=== PATIENT | male | born 1955 | race Caucasian/White ===

== ENCOUNTER 2016-09-16 20:00 | Observation (INO) | payer BC ==
--- NOTE | ~2016-09-16 | HP ---
History And Physical [place] [id number] [facility] [place]. [address] NAME: JARED ROSADO : 57 STATUS : ADM [place] PAT#: [id number] AGE: 60 ADM/REG DATE : 09/16/16 MR#: [id number] REPORT SERV DATE: 09/17/16 DICTATED BY: MIGUELINA HURTADO DATE: 09/17/16 REPORT STATUS : Draft TRANSCRIBED BY: GABINO DATE: 09/17/16 DATE OF ADMISSION: 09/16/2016 CHIEF COMPLAINT: JAQUEZ and chest pain with typical and atypical features. HISTORY OF PRESENT ILLNESS: A very pleasant 60-year-old white gentleman with no known history of CAD, states that on 09/16/2016, while at [employer], he became nauseated. He had no other symptoms. He and his went for breakfast or lunch following [employer]. He consumed hamburger steak, fries, and a salad. Later that day in his workshop, he developed a "sharp pain" in the center of his chest with associated shortness of breath, nausea, dizziness, and belching. He denies any diaphoresis. He states that his chest pain was an 8/10 at its most intense. At the time of interview in the [facility], he is pain free. The episode lasted approximately 90 minutes in duration. He checked his blood pressure that day, and it was 108/63, which was concerning for him, a little lower than normal. He also reports an episode of dyspnea on exertion with his most recent walk on Saturday. The patient denies any personal history of myocardial infarction, stroke, DVT, or pulmonary embolus. Most recent stress test approximately [address] Rodriguez's office. No recent fever, chills, rare palpitations. Consumes a glass of tea on some days. No syncopal episodes. Denies PND or orthopnea. PAST MEDICAL HISTORY: 1. Hypertension. 2. Dyslipidemia. 3. AODM. 4. BPH. 5. Allergies. 6. Positive family history for early CAD. PAST SURGICAL HISTORY: 1. Lumbar surgery. 2. Nasal surgery. 3. Right elbow surgery. 4. Cholecystectomy. 5. RK surgery. SOCIAL HISTORY: He is with two children. He is retired from [employer]. He walks three to four times weekly, 2 miles. Most recently on Saturday with some described dyspnea on exertion. Denies tobacco, alcohol, or illicits. FAMILY HISTORY: Father at the age of 49 of a heart attack. Mother with hypertension, CAD, and bypass CABG twice, initially in her 60s, at the age of 75. REVIEW OF SYSTEMS: A 14-point review of systems was performed, significant for HPI including home blood pressure of 130 to 140 over 80, blood sugar 150. Most recent reported hemoglobin A1c "5.1." History And Physical [address] [place]. [address] NAME: JARED ROSADO : 57 STATUS : ADM [place] PAT#: [id number] AGE: 60 ADM/REG DATE : 09/16/16 MR#: [id number] REPORT SERV DATE: 09/17/16 DICTATED BY: MIGUELINA HURTADO DATE: 09/17/16 REPORT STATUS : Draft TRANSCRIBED BY: GABINO DATE: 09/17/16 Otherwise complete review of systems obtained and negative. ALLERGIES: NO KNOWN DRUG ALLERGIES. HOME MEDICATIONS: Aspirin 81 mg daily; Lipitor 10 mg nightly; Zyrtec 10 mg daily; vitamin B12 1000 mcg monthly; diltiazem ER 420 mg daily; Cardura 2 mg nightly; Flonase spray daily; Amaryl 2 mg, Saturday, Saturday, and Saturday; losartan 100 mg daily; vitamin D; vitamin C; Bioflex; Centrum Silver; and saw palmetto. PHYSICAL EXAMINATION: BLOOD PRESSURE: Bilateral blood pressures on arrival, right 172/85, left 164/89, this morning 158/86. PULSE: 64, RESPIRATORY RATE: 12, TEMPERATURE: 97.9, O2 saturation 96% on room air. HEIGHT: 5 feet 10 inches. WEIGHT: 197 pounds. BMI of 28.3. GENERAL: Cooperative, in no apparent distress. HEENT: Pupils 2 mm, sclera nonicteric. Nares patent. Moist mucous membranes. No xanthelasma. NECK: Trachea midline, no thyromegaly. No JVD. No bruits. LYMPH: No cervical lymphadenopathy. No supraclavicular lymphadenopathy. RESPIRATORY: Unlabored respirations. Breath sounds clear bilaterally to posterior auscultation. No wheezes or rhonchi. CARDIOVASCULAR: Regular rate. No murmur, rub or gallop appreciated. EXTREMITIES: Without edema. Pulses 2+ bilaterally. ABDOMEN: Soft, nontender, nondistended, normal bowel sounds auscultated throughout. No organomegaly. SKIN: Warm, dry extremities. No pallor, or cyanosis. PSYCHIATRIC: Appropriate affect. Alert, oriented x3. LABORATORY DATA: Troponin is less than 0.02 x3. Potassium 4.1, BUN 22, creatinine 1.18, glucose 147, and magnesium 2.5. WBC of 5.5, hemoglobin 14.6, hematocrit 41.4, and platelet count 164,000. EKG: Sinus bradycardia. MPI, 2010: Stage IV, 11 minute, 13 METS, no ischemia. ASSESSMENT AND PLAN: 1. Substernal chest pain and dyspnea on exertion. The patient has been observed in the [facility] overnight to rule out myocardial infarction with serial enzymes and serial EKGs and held n.p.o. We will proceed with MPI today. The patient will be discharged home if low risk, no ischemia. If anything suggestive of ischemia, Cardiology referral will be initiated. Otherwise, the patient will be asked to follow up with his PCP in one to two weeks with all studies being sent to that office. 2. Hypertension. Monitor blood pressure. Continue home medications. Hold CCB and resume after MPI. 3. Dyslipidemia. Continue statin. 4. Adult-onset diabetes mellitus, level 1 sliding scale correction as warranted. History And Physical [address] [address] NAME: JARED ROSADO : 57 STATUS : ADM [place] PAT#: [id number] AGE: 60 ADM/REG DATE : 09/16/16 MR#: [id number] REPORT SERV DATE: 09/17/16 DICTATED BY: MIGUELINA HURTADO DATE: 09/17/16 REPORT STATUS : Draft TRANSCRIBED BY: [email or web address] DATE: 09/17/16 REGINA/GABINO MARTA Olvera, [employer] / [id number] CC: MARTA Olvera, [employer] Erik Rodriguez Jr., M.D.
[2016-09-16 18:11] LABS: BASOPHILS 0.2 %; BASOPHILS ABSOLUTE 0.01 10/3/uL (0.0-0.16); EOSINOPHILS 0.9 %; EOSINOPHILS ABSOLUTE 0.05 10/3/uL (0.0-0.53); HEMATOCRIT 41.4 % (40.0-51.0); HEMOGLOBIN 14.6 g/dL (13.6-17.8); IMMATURE GRANULOCYTES 0.2 %; IMMATURE GRANULOCYTES ABSOLUTE 0.01 10/3/uL (0.0-0.11); LYMPHOCYTES 21.3 %; LYMPHOCYTES ABSOLUTE 1.17 10/3/uL (0.67-4.30); MEAN CORPUS HGB CONC 35.3 g/dL (32.0-36.0); MEAN CORPUSCULAR HEMOGLOB 30.6 pg (26.0-34.0); MEAN CORPUSCULAR VOLUME 86.8 fL (80-100); MEAN PLATELET VOLUME 10.2 fL (9.2-13.0); MONOCYTES 11.5 %; MONOCYTES ABSOLUTE 0.63 10/3/uL (0.21-1.20); NEUTROPHILS 65.9 %; NEUTROPHILS ABSOLUTE 3.63 10/3/uL (2.02-8.40); PLATELET COUNT 164 10/3/uL (150-400); RBC DISTRIBUTION WIDTH 12.4 % (12.0-16.0); RED CELL COUNT 4.77 10/6/uL (4.7-6.1); WHITE BLOOD CELLS 5.5 10/3/uL (4.5-10.5)
[2016-09-16 18:12] LABS: MANUAL DIFF NO %
[2016-09-16 18:20] LABS: INTERNATIONAL NORMAL RATI 1.1 UNITS (-); PARTIAL THROMBO TIME 29.9 SEC (22.5-37.2); PROTIME (NOT ORD) 13.7 SEC (12.0-14.5)
[2016-09-16 18:29] LABS: CALCIUM, SERUM 8.7 MG/DL (8.5-10.4); CHEST PAIN PROFILE TAT 0 Hrs 22 Mins; CHLORIDE, SERUM 107 MMOL/L (96-112); CO2 (CARBON DIOXIDE) 27 MMOL/L (24-34); CREATININE 1.18 MG/DL (0.70-1.30); GFR AFRICAN AMERICAN 78 ML/MIN (>=60); GFR NON AFRICAN AMERICAN 67 ML/MIN (>=60); GLUCOSE, SERUM 147 MG/DL (60-99); POTASSIUM, SERUM 4.1 MMOL/L (3.5-5.3); SODIUM, SERUM 141 MMOL/L (135-148); TROPONIN I <0.02 NG/ML (<0.05)
[2016-09-16 18:31] LABS: BUN (BLOOD UREA NITROGEN) 22 MG/DL (6-23)
[~2016-09-16 20:00] MED LIST: ALLEGRA180 PO; AMARYL2 PO; ASAB PO; B121000P IM; BENICAR40 PO; CARDU2 PO; COZAAR100 MG PO; FISH OIL PO; FLONASE NAS; JUICE PLUS VITAMIN PO; LIPITOR10 PO; TIAZA5 PO; VITAMIN B-1500 MG PO; ZYRTEC ALLGY10 MG PO; [UNRECOGNIZED DRUG - OTHER] PO
== END 2016-09-17 14:50 | disposition home or self-care (01) ==
LOC: ER 20:00 → CDU1 20:26 → CDU2 20:41
PROVIDERS: Emergency Medicine
DX: R07.2 Precordial pain (principal); R06.00 Dyspnea, unspecified; I10 Essential (primary) hypertension; E78.5 Hyperlipidemia, unspecified; E11.8 Type 2 diabetes mellitus with unspecified complications; E78.00 Pure hypercholesterolemia, unspecified; N40.0 Benign prostatic hyperplasia without lower urinary tract symptoms; Z82.49 Family history of ischemic heart disease and other diseases of the circulatory system; Z98.890 Other specified postprocedural states; Z90.49 Acquired absence of other specified parts of digestive tract; Z79.899 Other long term (current) drug therapy; Z98.1 Arthrodesis status
CPT/HCPCS: 71010; 78452; 80048; 82962; 83735; 84484; 85025; 85610; 85730; 93005; 93017; 99285; A9270-GY; A9502; G0378